=== PATIENT | male | born 1960 | race African-American/Black ===

== ENCOUNTER 2019-01-22 10:02 | Emergency (ER) | payer MEDICAID, OTHER ==
[~2019-01-22] VITALS: Ht 175.3 cm; Wt 86.0 kg
[2019-01-22] MEDS: CYCLOBENZAPRINE 10MG TABLET PO ONE (11:30)
[2019-01-22] MEDS: IBUPROFEN 600MG TABLET PO ONE (11:30)
[2019-01-22 11:35] VITALS: BP 130/87
== END 2019-01-22 11:45 | disposition home or self-care (01) ==
LOC: ER 10:02
DX: M54.6 Pain in thoracic spine (principal); M79.18 Myalgia, other site; Z98.890 Other specified postprocedural states
CPT/HCPCS: 99283; Z7610

== ENCOUNTER 2019-04-07 11:06 | Emergency (ER) | payer MEDICAID ==
[~2019-04-07] VITALS: Ht 182.9 cm; Wt 86.0 kg
[2019-04-07 11:29] VITALS: BP 160/99
[2019-04-07] MEDS ORDERED: KETOROLAC 60MG/2ML VIAL IM ONE (11:45)
[2019-04-07] MEDS ORDERED: DIAZEPAM 5 MG TABLET PO ONE (11:45)
== END 2019-04-07 12:39 | disposition home or self-care (01) ==
LOC: ER 11:06
DX: M54.12 Radiculopathy, cervical region (principal)
CPT/HCPCS: 99283; J1885

== ENCOUNTER 2019-08-14 11:32 | Emergency (ER) | payer MEDICAID ==
[~2019-08-14] VITALS: Ht 172.7 cm; Wt 85.0 kg
[2019-08-14 12:02] VITALS: BP 184/89
[2019-08-14] MEDS ORDERED: BACITRACIN ZINC OINT UDPKT TOP ONE (15:15)
[2019-08-14] MEDS ORDERED: NAPROXEN 250MG TABLET PO ONE (15:15)
[2019-08-14] MEDS ORDERED: NAPROXEN 250MG TABLET PO NR (15:30)
== END 2019-08-14 15:18 | disposition home or self-care (01) ==
LOC: ER 11:32
DX: S00.91XA Abrasion of unspecified part of head, initial encounter (principal); W18.39XA Other fall on same level, initial encounter; Y93.89 Activity, other specified; Y92.89 Other specified places as the place of occurrence of the external cause; Y99.8 Other external cause status
CPT/HCPCS: 99283